=== PATIENT | male | born 1960 | race Caucasian/White ===

== ENCOUNTER 2024-03-12 17:10 | Emergency (ER) | payer OTHER, SELFPAY ==
[2024-03-12 17:11] VITALS: BMI 26.4
[2024-03-12 17:12] VITALS: BP 155/90
[2024-03-12 17:46] LABS: Urine Albumin 1+ (Neg - Trace); Urine Bilirubin Negative (Negative); Urine Character Very Cloudy (Clear); Urine Color Brown; Urine Glucose Negative (Negative); Urine Ketone Negative (Negative); Urine Leukocyte Trace (Negative); Urine Nitrite Negative (Negative); Urine Occult Blood 4+ (Negative); Urine Specific Gravity 1.015 (<1.030); Urine Urobilinogen 1+ (Neg - 1+); Urine pH 6.5 (5.0-9.0)
[2024-03-12 17:47] LABS: % Basophils 0.9 % (0-2); % Eosinophils 1.6 % (0-6); % Immature Granulocytes 0.1 % (0-0.5); % Lymphocytes 22.5 % (20.5-51.1); % Monocytes 7.8 % (1.7-9.3); % Neutrophils 67.1 % (42.2-75.2); Absolute Basophils 0.1 10^3/uL (0-0.2); Absolute Eosinophils 0.1 10^3/uL (0-0.7); Absolute Lymphocytes 1.6 10^3/uL (1.2-3.4); Absolute Monocytes 0.5 10^3/uL (0.1-0.6); Absolute Neutrophils 4.6 10^3/uL (1.4-6.5); Hematocrit 40.3 % (39.0-52.0); Mean Corp Hgb Conc. 34.7 g/dL (33.0-37.0); Mean Corpuscular Hgb 29.5 pg (27.0-31.0); Mean Platelet Volume 9.9 fL (7.4-10.4); Nucleated Red Blood Cells % 0 % (-); Platelet Count 271 10^3/uL (130-400); Red Blood Cell Count 4.74 10^6/uL (4.70-6.10); Red Cell Dist. Width 13.2 % (11.5-14.5); White Blood Cell Count 6.9 10^3/uL (4.8-10.8)
[2024-03-12 17:51] LABS: Urine Bacteria Moderate (Negative); Urine Red Blood Cell >100 /HPF (0-2); Urine White Cell 0-2 /HPF (0-5)
[2024-03-12 18:04] LABS: ALT (SGPT) 19 U/L (0-50); AST (SGOT) 23 U/L (17-59); Albumin 4.4 g/dl (3.5-5.0); Alkaline Phosphatase 53 U/L (38-126); Blood Urea Nitrogen 25 mg/dl (9-20); Calcium 9.6 mg/dl (8.4-10.2); Carbon Dioxide 28 mmol/L (22-30); Chloride 102 mmol/L (98-107); Glucose 94 mg/dl (70-99); Potassium 4.2 mmol/L (3.5-5.1); Sodium 139 mmol/L (135-145); Total Bilirubin 0.5 mg/dl (0.2-1.3); Total Protein 6.7 g/dl (6.3-8.2); eGFR > 60.00
[2024-03-12 20:23] VITALS: BP 146/105
--- NOTE | 2024-03-12 20:27 | ED.GENMED ---
History of Present Illness
General
Chief Complaint: Urinary Symptoms
Source: patient
Time Seen by Provider: 03/12/24 19:52
History of Present Illness
History of Present Illness:
64-year-old male presents to the emergency room complaining of hematuria. Patient noted hematuria today first in the morning. He had another episode hematuria this afternoon. Most recently he urinated and felt his urine was clear. Patient has
history of a TURP about a year ago. Patient had a renal mass removed several years ago which turned out to be renal cell carcinoma but patient did not require any further treatment at that time. He believes this was on the right. Patient denies
any fever, chills, nausea or vomiting. He denies any abdominal pain. He denies flank pain at this time though he does have chronic back pain due to significant scoliosis. He has had multiple epidural injections.
Phy Exam
Physical Exam
Physical Exam:
General: Awake, Alert, Oriented X3. No acute distress.
Vitals: unremarkable
Head: Atraumatic
Eyes: Pupils equal, EOMI
Throat: Airway intact, no exudates
Neck: Trachea midline
Lungs: Clear and equal b/l
Heart: Regular rate, no murmurs
Abd: Soft, Nontender, No pulsatile mass
Back: Significant scoliosis, no significant flank pain to percussion
Neuro: Nonfocal
Skin: Warm, dry, no rash
Extremities: pulses equal b/l, no edema
Course
Orders/Labs/Results
Orders:
Orders
03/12/24 17:36
Complete Blood Count/With Diff Urgent
Comprehensive Metabolic Panel Urgent
Urinalysis Reflex To Culture Urgent
Date Specimen was Collected: 03/12/24
Time Specimen was Collected: 17:19
Urine Microscopic Reflex Cult Urgent
Urine Culture Urgent
DAV Source: U
Specimen Description:
Date Specimen was Collected: 03/12/24
Time Specimen was Collected: 17:19
03/12/24 20:27
CT Abd/pel Without Iv Or Oral Urgent
Comment:
Reason For Exam: flank pain hematuria
Abnormal Lab Results
03/12/24
17:36
BUN 25 H mg/dl
(9-20)
Ur Occult Blood Reflex 4+ A
(Negative)
Leukocyte Esterase Rfl Trace A
(Negative)
Urine RBC >100 A /HPF
(0-2)
Urine Bacteria (Reflex) Moderate A
(Negative)
Urine Albumin (Reflex) 1+ A
(Neg - Trace)
03/12/24 17:36
03/12/24 17:36
Vital Signs
Initial and Last Documented VS:
Initial Vital Signs
Temp Pulse Resp BP Pulse Ox
97.5 F 75 16 155/90 95
03/12/24 17:12 03/12/24 17:12 03/12/24 17:12 03/12/24 17:12 03/12/24 17:12
Last Documented Vital Signs
Temp Pulse Resp BP Pulse Ox
97.5 F 75 16 144/90 98
03/12/24 17:12 03/12/24 17:12 03/12/24 17:12 03/12/24 22:27 03/12/24 22:28
MDM/Problems Addressed
Differential Diagnosis Includes:
Kidney stone, kidney mass, bladder mass, prostatic hypertrophy, UTI
MDM/Problems Addressed:
Patient presents with intermittent hematuria. He is afebrile. Urinalysis shows blood but no other convincing findings for active infection. Patient apprehensive to take antibiotics because he has an allergy to everything. Would hold off on
antibiotic management unless culture grows something. Imaging shows no mass or stones. He does have a massive prostate. Suspect this is the likely cause of hematuria though he will need to follow-up with his urologist. Patient likely will need
bladder cystoscopy. However patient is voiding and there is no indication for hospitalization at this time.
*Radiology
Radiology exam reviewed: radiology read reviewed
*Pulse Oximetry
Patient hypoxic: no
*Critical Care Note
Total Time (30-74mins, 75-104mins- exclusive of procedures): Not Applicable
ED Attending Note
-
Portions of this chart may have been created with voice recognition software.� Occasional wrong word or��sound alike� substitutions may have occurred due to the inherent limitations of voice recognition software.
Discharge Plan
Departure
Patient Disposition: Home (Routine Discharge)
Date of Disposition: 03/12/24
Time of Disposition: 22:07
Patient with high blood pressure during this ER visit?: Yes
Condition: Good
Discharge Problem:
Hematuria
Referrals:
Arcenio Pisano MD [Family Provider] -
Activity Restrictions/Additional Instructions:
Please call your urologist Friday morning to arrange follow up on the blood in your urine. Your CT scan does not show any kidney stones or masses. There are a couple cysts which should not cause bleeding. Your prostate is very enlarged, which
maybe a reason for the blood. The next step in the evaluation is frequently taking a look inside the bladder with a scope which is why it is important to see your urologist.
Interventions
Interventions:
*Risk Screen - Suicide Last Done: 03/12/24 17:12
*General Assessment Last Done: 03/12/24 17:12
*Neglect/Abuse Screening Last Done: 03/12/24 17:12
ED- Fall Risk Assessment Last Done: 03/12/24 22:41
*ED COVID-19 Vaccine History Last Done: 03/12/24 20:24
*Nursing Disposition Last Done: 03/12/24 22:41
ED-Male Genitourinary Assessment Last Done: 03/12/24 20:24
Discharge Date and Time
Discharge Date/Time: 03/12/24 22:42
Print Language: [id number]
[2024-03-12 22:27] VITALS: BP 144/90
== END 2024-03-12 22:42 | disposition home or self-care (01) ==
LOC: EMR 17:10
PROVIDERS: Student in an Organized Health Care Education/Training Program; EMERGENCY PHYSICIAN Emergency Medicine; FAMILY PHYSICIAN Family Medicine
DX: R31.9 Hematuria, unspecified (principal); M41.9 Scoliosis, unspecified; I25.10 Atherosclerotic heart disease of native coronary artery without angina pectoris; Z90.49 Acquired absence of other specified parts of digestive tract; Z90.5 Acquired absence of kidney
CPT/HCPCS: 99284; 74176; 80053; 81003; 81015; 85025; 87086